=== PATIENT | male | born 1985 | race Two or more races ===

== ENCOUNTER 2024-06-05 10:46 | Emergency (ER) | payer OTHER ==
[~2024-06-05] VITALS: Ht 177.8 cm; Wt 99.8 kg
[2024-06-05 12:30] VITALS: BP 138/78; TEMP 98.7; O2SAT 98
== END 2024-06-05 12:31 ==
LOC: ER 11:27
DX: S30.1XXA Contusion of abdominal wall, initial encounter (principal); W22.8XXA Striking against or struck by other objects, initial encounter; Y93.89 Activity, other specified; Y92.89 Other specified places as the place of occurrence of the external cause; Y99.8 Other external cause status